=== PATIENT | female | born 1980 | race American Indian/Alaskan Native ===

== ENCOUNTER 2018-12-21 17:11 | Observation (INO) | payer MEDICAID ==
[2018-12-21 17:28] VITALS: BP 128/60
[2018-12-21 18:31] LABS: Bilirubin,Urine NEG (Negative); Blood,Urine NEG (Negative); Color,Urine Yellow (Yellow); Mucus,Urine FEW /HPF; WBC,Urine < 1.0 /HPF (0.0-6.0)
[2018-12-21 18:50] LABS: Amphetamine Screen,Urine PRESUMPTIVE NEGATIVE; Benzodiazepines Screen,Urine PRESUMPTIVE NEGATIVE; Cannabinoid Screen,Urine PRESUMPTIVE NEGATIVE; Cocaine Screen,Urine PRESUMPTIVE NEGATIVE; Methadone Screen,Urine PRESUMPTIVE NEGATIVE; Opiate Screen,Urine PRESUMPTIVE NEGATIVE
[2018-12-21] MEDS ORDERED: LACTATED RINGERS 1,000 ML ONE (18:56)
[2018-12-21] MEDS ORDERED: LACTATED RINGERS 500 ML IV ONE (19:00)
[2018-12-21] MEDS ORDERED: LACTATED RINGERS 1,000 ML IV SCH (19:00)
--- NOTE | 2018-12-21 20:33 | Ultrasound Report ---
ULTRASOUND BIOPHYSICAL PROFILE INDICATION: labor. COMPARISON: None available. FINDINGS: breathing movement = 2 Gross body movement = 2 tone = 2 Qualitative amniotic fluid volume = 2 Total biophysical score = 8/8 Amniotic fluid index is 7.7 cm. Presentation is Cephalic. heart rate is 150 beats per minute. IMPRESSION: biophysical profile = 8/8 US OB limited, US OB BPP wo non-stress INDICATION / CLINICAL INFORMATION: labor. COMPARISON: None available. FINDINGS: There is a single viable intrauterine in cephalic presentation with heart rate of 150. Amni otic fluid index is 7.7 cm, within normal limits. There is a grade 2 posterior placenta which is unre markable. IMPRESSION: 1. No abnormalities are seen on this limited study. Signer Name: Juan A Crockett MD Signed: 12/21/2018 8:28 PM Workstation Name: [id number]
== END 2018-12-21 23:48 | disposition home or self-care (01) ==
LOC: TRG 17:11 → INTOOBSV 18:19 → LD 18:19
PROVIDERS: ADMIT Obstetrics & Gynecology; ATTEND Obstetrics & Gynecology
DX: O60.03 Preterm labor without delivery, third trimester (principal); Z82.49 Family history of ischemic heart disease and other diseases of the circulatory system; Z3A.34 34 weeks gestation of pregnancy
CPT/HCPCS: 76815; 76819; 80307; 81001; G0378; J7120; 96360; 96361